=== PATIENT | female | born 1950 | race Hispanic/Latino ===

== ENCOUNTER 2018-11-20 06:16 | Day surgery (SDC) | payer MEDICARE ==
[2018-11-19 15:43] VITALS: BP 112/64
[2018-11-19 15:51] LABS: BASOPHILS % (AUTO) 0.8 % (0.0-5.0); EOSINOPHILS % (AUTO) 1.1 % (0.0-8.0); HEMATOCRIT 39.1 % (36-48); LYMPHOCYTES % (AUTO) 34.5 % (21.0-51.0); MEAN CORPUSCULAR HEMOGLOBIN 32.1 pg (27.0-33.0); MEAN CORPUSCULAR HGB CONC 33.8 g/dL (32.0-36.0); MEAN CORPUSCULAR VOLUME 95.1 fL (79-99); MONOCYTES % (AUTO) 10.2 % (3.0-13.0); NEUTROPHILS % (AUTO) 53.4 % (40.0-77.0); NUCLEATED RED BLOOD CELLS 0.1 % (0.0-0.19); PLATELET COUNT (AUTO) 275 K/uL (130-400); RED BLOOD CELL COUNT(AUTO) 4.11 MIL/uL (4.00-5.50); RED CELL DISTRIBUTION WIDTH 13.4 % (11.0-15.5); WHITE BLOOD COUNT (AUTO) 5.3 K/uL (4.8-10.8)
[2018-11-20] VITALS (14 sets, daily range): BP systolic 97–122; BP diastolic 42–67
[~2018-11-20] VITALS: Ht 154.9 cm; Wt 64.9 kg
[~2018-11-20 06:16] MED LIST: ASPI-1197 PO; ATOR-2 PO; CASCARA SAGRADA PO; CLOP75TA14 PO; HYDR200T4 PO; MELA1TAB35 PO; METO25TA6 PO; OMEG-125 PO; OMEGA XL PO; PREG100C PO; ROPI0.5T5 PO
[2018-11-20] MEDS: CEFAZOLIN SODIUM 1 GM VIAL IVP SCH ×2 (06:30→08:40)
[2018-11-20] MEDS ORDERED: LACTATED RINGERS 1000ML 1,000 ML IV ONE (06:47)
[2018-11-20] MEDS ORDERED: LIDOCAINE PF 2% 5ML ABBOJECT ONE (06:59)
[2018-11-20] MEDS ORDERED: SUCCINYLCHOLINE 200MG/10ML SYR ONE (06:59)
[2018-11-20] MEDS ORDERED: ONDANSETRON HCL 4 MG/2 ML VIAL ONE (07:01)
[2018-11-20] MEDS ORDERED: GLYCOPYRROLATE 1 MG/5 ML SYRINGE ONE (07:01)
[2018-11-20] MEDS ORDERED: DEXAMETHASONE SOD PHOSPHATE 10MG/ML 1ML VIAL ONE (07:01)
[2018-11-20] MEDS ORDERED: PROPOFOL 10 MG/ML 20ML VIAL IV ONE (07:01)
[2018-11-20] MEDS ORDERED: NEOSTIGMINE 5MG/5ML SYR IV ONE (07:01)
[2018-11-20] MEDS ORDERED: ROCURONIUM 10MG/1ML SYR 10 MG/ML ML ONE (07:02)
[2018-11-20] MEDS ORDERED: MIDAZOLAM HCL 1 MG/ML 2ML VIAL ONE (07:02)
[2018-11-20] MEDS ORDERED: FENTANYL CITRATE PF 50 MCG/1 ML 2ML VIAL ONE ×2 (07:02→09:58)
--- NOTE | 2018-11-20 07:04 | NUR ---
POTENTIAL FOR INFECTION: RIGHT KNEE / LEG CLIPPED AND WIPED WITH HAMLET PER KEVYN BAKER.
[2018-11-20] MEDS ORDERED: LIDOCAINE HCL 1% 20 ML VIAL ONE (07:12)
[2018-11-20] MEDS ORDERED: HEPARIN SODIUM 1000UNIT/ML 10ML VIAL ONE (07:12)
[2018-11-20] MEDS ORDERED: IOHEXOL 350 MG/ML 100ML INFUS..BTL IV ONE (07:13)
[2018-11-20] MEDS ORDERED: IOHEXOL-350 50ML VIAL IV ONE (07:13)
[2018-11-20] MEDS ORDERED: TYL3 PO (09:34)
[2018-11-20] MEDS ORDERED: CEPH500B PO (09:34)
[2018-11-20] MEDS ORDERED: MEPERIDINE-PF 25 MG/ML SYG ONE (09:46)
== END 2018-11-20 11:35 | disposition home or self-care (01) ==
LOC: DAH 06:16
PROVIDERS: ATTEND Orthopaedic Surgery
DX: M23.241 Derangement of anterior horn of lateral meniscus due to old tear or injury, right knee (principal); M22.41 Chondromalacia patellae, right knee; Z98.890 Other specified postprocedural states; M32.9 Systemic lupus erythematosus, unspecified; Z87.891 Personal history of nicotine dependence; E78.5 Hyperlipidemia, unspecified; I25.118 Atherosclerotic heart disease of native coronary artery with other forms of angina pectoris; I21.3 ST elevation (STEMI) myocardial infarction of unspecified site; I10 Essential (primary) hypertension; Z95.5 Presence of coronary angioplasty implant and graft; Z98.41 Cataract extraction status, right eye; Z98.42 Cataract extraction status, left eye; G89.29 Other chronic pain; Z88.8 Allergy status to other drugs, medicaments and biological substances
CPT/HCPCS: 29881; 36415; 85025; A4218; A4606; A4649 ×2; A4930 ×2; A6223; J0330; J0690; J1100; J1644; J2001; J2175; J2250; J2405; J2704; J2710; J3010 ×2; J3490; J7120; Q9967

== ENCOUNTER → 2021-03-16 | Outpatient (CLI) | payer OTHER, MEDICARE ==
[~2021-03-16] VITALS: Ht 157.5 cm; Wt 81.2 kg
[~2021-03-16] MED LIST changes: +CEPH500B PO; +REGADENOSON 0.4 MG/5 ML PF SYG IVP SCH; -ROPI0.5T5 PO; +ROPI0.5T7 PO; +TYL3 PO
== END | disposition home or self-care (01) ==
LOC: SHCH 08:20
PROVIDERS: ATTEND Internal Medicine Cardiovascular Disease
DX: R07.9 Chest pain, unspecified (principal)
CPT/HCPCS: 78452; 93017; 96374; A9500 ×2